=== PATIENT | female | born 1990 | race African-American/Black ===

== ENCOUNTER 2022-01-22 14:35 | Inpatient (IN) ==
[2022-01-22 15:14] LABS: Basophils # 0.1 10*3/uL (0.0-0.2); Basophils % 0.4 % (0.0-0.8); Eosinophils # 0.3 10*3/uL (0.0-0.87); Eosinophils % 2.1 % (0.00-10.9); Hematocrit 43.1 VOL% (35.7-47.0); Hemoglobin 13.6 GM/DL (12.0-16.0); Immature Granulocytes % 0.4 %; Immature Granulocytes Absolute 0.05 #; Lymphocytes # 0.7 10*3/uL (1.4-4.0); Lymphocytes % 5.2 % (21.3-54.2); Mean Corpuscular HGB Conc 31.6 GM/DL (32-36); Mean Corpuscular Volume 83.4 FL (87-102); Monocytes # 0.4 10*3/uL (0.11-0.8); Monocytes % 2.8 % (1.7-12.7); Neutrophils % 89.1 % (38.7-73.9); Platelet Count 295 T/CUMM (130-400); Red Blood Count 5.17 MC/CUMM (3.8-5.5); Red Cell Distribution Width 14.3 % (9.3-17.3); White Blood Count 13.8 T/CUMM (4-12)
[2022-01-22 15:37] LABS: Albumin 3.8 G/DL (3.4-5.0); Bilirubin,Total 0.4 MG/DL (0.20-1.00); Osmolality,Calculated 277.4 MOS/KG (273-304); Potassium 4.2 MMOL/L (3.5-5.1); Total Protein 7.7 G/DL (6.4-8.2)
[2022-01-22] MEDS ORDERED: ALBUTEROL NEB SOLN 5 MG/ML 20 ML/BOTTLE CONT NEB STA (19:19)
[2022-01-22] MEDS ORDERED: ALBUTEROL/IPRATROPIUM 3 ML NEB RESP TX STA (19:19)
[2022-01-22] MEDS ORDERED: methylPREDNISolone SOD SUC 125 MG/2 ML VIAL IV STA (19:19)
[2022-01-22] MEDS ORDERED: SODIUM CHLORIDE 0.9% 1,000 ML IV STA ×2 (22:23→22:58)
[2022-01-22 22:40] LABS: Arterial Base Excess iSTAT -2 MMOL/L (-2.5-2.5); Arterial Bicarbonate iSTAT 22.1 MMOL/L (20-26); Arterial O2 Saturation iSTAT 91 % (95-100); Arterial PCO2 iSTAT 36 MM HG (35-48); Arterial PO2 iSTAT 62 MM HG (80-95); Arterial Total CO2 iSTAT 23 MMO/L (23-27); Arterial pH iSTAT 7.398 (7.35-7.45)
[2022-01-22] MEDS ORDERED: hydrALAZINE 20 MG/1 ML VIAL IV PRN (23:10)
[2022-01-22] MEDS ORDERED: ONDANSETRON 4 MG/2 ML VIAL IV PRN (23:10)
[2022-01-22] MEDS ORDERED: NICOTINE 21 MG/24 HR PATCH TRANSDERM PRN (23:10)
[2022-01-22] MEDS ORDERED: ZALEPLON 5 MG CAPSULE PO PRN (23:10)
[2022-01-22] MEDS ORDERED: cefTRIAXone 1,000 MG in SODIUM CHLORIDE 0.9% 100 ML IV SCH (23:30)
[2022-01-23] MEDS: ALBUTEROL/IPRATROPIUM 3 ML NEB RESP TX SCH ×4 (00:02→21:55)
[2022-01-23] MEDS: AZITHROMYCIN INJ 500 MG in SODIUM CHLORIDE 0.9% 250 ML IV SCH ×2 (02:00→23:16)
[2022-01-23] MEDS ORDERED: methylPREDNISolone SOD SUC 40 MG/1 ML VIAL IV SCH (05:00)
[2022-01-23 05:21] LABS: Basophils % 0.1 % (0.0-0.8); Hematocrit 36.4 VOL% (35.7-47.0); Hemoglobin 11.8 GM/DL (12.0-16.0); Immature Granulocytes % 0.6 %; Immature Granulocytes Absolute 0.07 #; Lymphocytes # 0.3 10*3/uL (1.4-4.0); Lymphocytes % 2.8 % (21.3-54.2); Mean Corpuscular HGB Conc 32.4 GM/DL (32-36); Mean Corpuscular Volume 83.3 FL (87-102); Mean Platelet Volume 9.5 FL (9.6-12.0); Monocytes # 0.1 10*3/uL (0.11-0.8); Monocytes % 0.7 % (1.7-12.7); Neutrophils % 95.8 % (38.7-73.9); Platelet Count 253 T/CUMM (130-400); Red Blood Count 4.37 MC/CUMM (3.8-5.5); Red Cell Distribution Width 14.1 % (9.3-17.3); White Blood Count 11.2 T/CUMM (4-12)
[2022-01-23 05:39] LABS: Calcium 8.7 MG/DL (8.5-10.1); Osmolality,Calculated 278.4 MOS/KG (273-304); Potassium 4.1 MMOL/L (3.5-5.1)
[2022-01-23 05:47] LABS: Lymphocytes 5 % (20-55); Total Cells Counted 100
[2022-01-23 05:48] LABS: Hypochromia Slight; Microcytosis Slight; Platelet Estimate Normal
[2022-01-23] MEDS: PANTOPRAZOLE 40 MG TABLET PO SCH (09:17)
[2022-01-23] MEDS: ENOXAPARIN 40 MG/0.4 ML SYRINGE SUBCUT SCH (09:17)
[2022-01-23] MEDS ORDERED: ACETAMINOPHEN/CODEINE 300-30 MG TABLET PO PRN (11:48)
[2022-01-23] MEDS: NICOTINE 21 MG/24 HR PATCH TRANSDERM SCH (13:35)
[2022-01-23] MEDS: methylPREDNISolone SOD SUC 125 MG/2 ML VIAL IV SCH ×2 (13:35→21:40)
[2022-01-23] MEDS: METOPROLOL TARTRATE 25 MG TABLET PO SCH ×2 (15:06→21:40)
[2022-01-23] MEDS ORDERED: ACETAMINOPHEN 325 MG TABLET ONE (17:06)
[2022-01-23] MEDS: MORPHINE 2 MG/1 ML SYRINGE IV PRN ×2 (17:19→22:12)
[2022-01-24] MEDS: methylPREDNISolone SOD SUC 125 MG/2 ML VIAL IV SCH ×3 (04:28→16:58)
[2022-01-24] MEDS: MORPHINE 2 MG/1 ML SYRINGE IV PRN ×2 (04:29→18:30)
[2022-01-24] MEDS: ALBUTEROL/IPRATROPIUM 3 ML NEB RESP TX SCH ×4 (07:46→19:35)
[2022-01-24] MEDS: METOPROLOL TARTRATE 25 MG TABLET PO SCH ×2 (10:45→21:35)
[2022-01-24] MEDS: AZITHROMYCIN 250 MG TABLET PO SCH (10:45)
[2022-01-24] MEDS: PANTOPRAZOLE 40 MG TABLET PO SCH (10:45)
[2022-01-24] MEDS: ENOXAPARIN 40 MG/0.4 ML SYRINGE SUBCUT SCH (10:47)
[2022-01-24] MEDS: NICOTINE 21 MG/24 HR PATCH TRANSDERM SCH (10:47)
[2022-01-25] MEDS: methylPREDNISolone SOD SUC 125 MG/2 ML VIAL IV SCH (02:29)
[2022-01-25] MEDS: ALBUTEROL/IPRATROPIUM 3 ML NEB RESP TX SCH ×3 (02:42→11:10)
[2022-01-25 09:01] LABS: Basophils % 0.1 % (0.0-0.8); Eosinophils % 0.2 % (0.00-10.9); Hematocrit 40.9 VOL% (35.7-47.0); Hemoglobin 12.8 GM/DL (12.0-16.0); Immature Granulocytes % 0.5 %; Immature Granulocytes Absolute 0.06 #; Lymphocytes # 0.9 10*3/uL (1.4-4.0); Lymphocytes % 7.8 % (21.3-54.2); Mean Corpuscular HGB Conc 31.3 GM/DL (32-36); Mean Corpuscular Volume 84.2 FL (87-102); Mean Platelet Volume 10.1 FL (9.6-12.0); Monocytes # 0.4 10*3/uL (0.11-0.8); Monocytes % 3.3 % (1.7-12.7); Neutrophils % 88.1 % (38.7-73.9); Platelet Count 237 T/CUMM (130-400); Red Blood Count 4.86 MC/CUMM (3.8-5.5); White Blood Count 11.2 T/CUMM (4-12)
[2022-01-25 09:18] LABS: Calcium 8.8 MG/DL (8.5-10.1); Osmolality,Calculated 280.4 MOS/KG (273-304); Potassium 3.7 MMOL/L (3.5-5.1)
[2022-01-25] MEDS ORDERED: MAGNESIUM SULF RIDER 2 GM/50 ML PREMIX IV ONE (11:19)
[2022-01-25] MEDS: METOPROLOL TARTRATE 25 MG TABLET PO SCH (11:26)
[2022-01-25] MEDS: AZITHROMYCIN 250 MG TABLET PO SCH (11:28)
[2022-01-25] MEDS: PANTOPRAZOLE 40 MG TABLET PO SCH (11:28)
[2022-01-25] MEDS: NICOTINE 21 MG/24 HR PATCH TRANSDERM SCH (11:30)
[2022-01-25] MEDS: ENOXAPARIN 40 MG/0.4 ML SYRINGE SUBCUT SCH (11:31)
[2022-01-25 13:39] VITALS: BP 121/76
== END 2022-01-25 14:51 | disposition home or self-care (01) | DRG 202 ==
LOC: N.ED 14:35 → N.EDINP 23:10 → N.5E 01-23 17:28
PROVIDERS: ADMIT Internal Medicine; ATTEND Internal Medicine